=== PATIENT | male | born 1960 | race Caucasian/White ===

== ENCOUNTER → 2025-02-04 11:57 | Outpatient (REF) | payer BC, SELFPAY | LOC: PAVMRI 11:57 | PROVIDERS: ATTENDING PHYSICIAN Internal Medicine Interventional Cardiology; FAMILY PHYSICIAN Family Medicine | DX: I47.20 Ventricular tachycardia, unspecified (principal) | CPT/HCPCS: 75561; A9585 ==

== ENCOUNTER 2025-04-28 10:23 | Day surgery (SDC) | payer BC, SELFPAY ==
[2025-04-14 08:12] VITALS: BMI 33.2
[2025-04-14 08:45] LABS: Hematocrit 46.2 % (39.0-52.0); Hemoglobin 15.1 g/dL (13.0-18.0); Mean Corp Hgb Conc. 32.7 g/dL (33.0-37.0); Mean Corpuscular Volume 88.2 fL (80.0-94.0); Nucleated Red Blood Cells % 0 % (-); Platelet Count 207 10^3/uL (130-400); Red Cell Dist. Width 13.3 % (11.5-14.5)
[2025-04-14 09:35] LABS: ALT (SGPT) 22 U/L (0-50); AST (SGOT) 23 U/L (17-59); Albumin 4.1 g/dl (3.5-5.0); Alkaline Phosphatase 50 U/L (38-126); Blood Urea Nitrogen 17 mg/dl (9-20); Calcium 9.4 mg/dl (8.4-10.2); Carbon Dioxide 28 mmol/L (22-30); Chloride 104 mmol/L (98-107); Estimated Creatinine Clearance 91 ml/min; Glucose 212 mg/dl (70-99); Magnesium 1.8 mg/dl (1.6-2.3); Potassium 4.5 mmol/L (3.5-5.1); Sodium 138 mmol/L (135-145); Total Protein 6.4 g/dl (6.3-8.2); eGFR > 60.00
[2025-04-28] VITALS (13 sets, daily range): BP systolic 97–150; BP diastolic 65–94; BMI 32.7
[2025-04-28 11:08] LABS: Glucose - Point of Care 128 mg/dl (70-99)
--- NOTE | 2025-04-28 17:29 | ITS.EPS ---
Director Of Photography - EPS Report
EPS
Procedure Report:
ELECTROPHYSIOLOGY REPORT
Date of Procedure: April 28, 2025
Primary Care Provider: Shy Keys DO
Primary business applications developer: Dr. Marcos Powers
INDICATION:
Sudden cardiac risk assessment. 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
Echocardiogram from May 03, 2023 finds�segmental wall motion abnormalities with basal inferior segment akinesis and also notation of LAD distribution wall motion abnormality including the entire lateral wall, entire septum, entire apex and mid to
apical inferior wall hypokinesis.
12/27/2024 14 second NSVT at 207 bpm
He presents now for EP guided risk stratification of sudden cardiac .
PROCEDURE:
Ultrasound Guidance with real-time visualization of needle insertion and vessel patency performed by in for femoral venous Vascular Access. Images were taken and saved for the patient's permanent record. Imaging findings typical femoral venous
anatomy. Direct visualization of needle puncture into the femoral vein was observed and recorded.
Baseline measurements were obtained. Programmed stimulation was performed. Pacing from the high right atrium and two sites from the right ventricle (RVA and RVOT) was performed. One, two and three extrastimuli were introduced from both RV sites.
Burst pacing was also performed from the RVA.
With programmed electrical stimulation, there are no sustained arrhythmias induced.
This suggest that he is not at high risk of VT VF related sudden cardiac .
Therefore, ICD is not currently indicated.
COMPLICATIONS: None
SUMMARY:
Electrophysiologic study
Ultrasound guided vascular access.
RECOMMENDATIONS:
With programmed electrical stimulation, there are no sustained arrhythmias induced.
This suggest that he is not at high risk of VT VF related sudden cardiac .
Therefore, ICD is not currently indicated.
Copy to:
Shy Keys DO
Dr. Marcos Powers
== END 2025-04-28 18:03 | disposition home or self-care (01) ==
LOC: CATH 10:23
PROVIDERS: ATTENDING PHYSICIAN Internal Medicine Cardiovascular Disease; FAMILY PHYSICIAN Family Medicine; OTHER PHYSICIAN Internal Medicine Interventional Cardiology
DX: I47.29 Other ventricular tachycardia (principal); I48.91 Unspecified atrial fibrillation; I11.0 Hypertensive heart disease with heart failure; I50.22 Chronic systolic (congestive) heart failure; I42.9 Cardiomyopathy, unspecified; E78.5 Hyperlipidemia, unspecified; E11.40 Type 2 diabetes mellitus with diabetic neuropathy, unspecified; F32.A Depression, unspecified; F41.9 Anxiety disorder, unspecified; Z79.84 Long term (current) use of oral hypoglycemic drugs
CPT/HCPCS: 93620; C1730; C1894; 36415; 80053; 82962; 83735; 85025; 93005